=== PATIENT | male | born 1950 | race Caucasian/White ===

== ENCOUNTER 2017-12-12 08:27 | Emergency (ER) | payer BC ==
[2017-12-12] MEDS ORDERED: Albuterol 2.5 MG/3 ML NEB.SOL* (0.083%) INH ONE (10:23)
--- NOTE | 2017-12-12 10:36 | UC ---
Respiratory Complaint HPI - HPI Summary HPI Summary: HERE WITH - ARRIVED YESTERDAY FROM [place]. HAS HAD 5 DAYS OF HARSH COUGH , WHEEZE AND SOB. FEELS HE IS GETTING WORSE. ALBUTEROL AND QVAR INHALERS NOT HELPING. STARTED PREDNISONE 2 DAYS AGO PER HIS PCP IN [place]. DENIES FEVER, NAUSEA, BODY ACHES. STATES HE HAS HAD THIS BEFORE IN THE [place]. - History of Current Complaint Chief Complaint: UCRespiratory Stated Complaint: RESP ISSUE Time Seen by Provider: 12/12/17 10:14 Hx Obtained From: Patient, Family/Coal Handler - Onset/Duration: Gradual Onset, Lasting Days, Still Present Timing: Constant Severity Initially: Moderate Severity Currently: Moderate Pain Intensity: 5 Pain Scale Used: 0-10 Numeric Aggravating Factors: Deep Breaths Alleviating Factors: Nothing Associated Signs And Symptoms: Positive: Dyspnea, Pleuritic Chest Pain, Wheezing , URI. Negative: Fever, Chills - Allergies/Home Medications Allergies/Adverse Reactions: Allergies Allergy/AdvReac Type Severity Reaction Status Date / Time No Known Allergies Allergy Verified 12/12/17 10:30 Home Medications: Home Medications Albuterol HFA INHALER* [Ventolin HFA Inhaler*] 2 puff INH Q4HR 12/12/17 [ History Confirmed 12/12/17] Aspirin 1 tab PO DAILY 12/12/17 [History Confirmed 12/12/17] B12/Iodin/Mag/Zinc/Rachel/Upst224 [Adrenoid Capsule] 1 cap PO DAILY 12/12/17 [ History Confirmed 12/12/17] Beclomethasone 40 MCG MDI(NF) [Qvar 40 MCG MDI(NF)] 2 puff INH DAILY PRN [History Confirmed 12/12/17] Cholecalciferol (Vitamin D3) [Vitamin D3] 5,000 units PO DAILY 12/12/17 [ History Confirmed 12/12/17] Dextroamphetamine (NF) TAB [Dexedrine TAB*] 15 mg PO DAILY 12/12/17 [History Confirmed 12/12/17] Escitalopram (NF) [Lexapro 5 mg (NF)] 1 tab PO DAILY 12/12/17 [History Confirmed 12/12/17] Metformin HCl [Metformin HCl ER] 1,000 mg PO BID 12/12/17 [History Confirmed 07/21] Naltrexone TAB* 3.5 mg PO DAILY 12/12/17 [History Confirmed 12/12/17] [place]-3 Fatty Acids/Fish Oil [Fish Oil 1,000 mg Capsule] 2,000 g PO BID [History Confirmed 12/12/17] amLODIPine TAB* [Norvasc 5 mg TAB*] 10 mg PO DAILY 12/12/17 [History Confirmed 12/12/17] buPROPion HCl [Bupropion Xl] 1 tab PO DAILY 12/12/17 [History Confirmed 12/12/17 ] PMH/Surg Hx/FS Hx/Imm Hx Respiratory History: Asthma - Surgical History Surgical History: Yes Surgery Procedure, Year, and Place: shoulders bilat - Family History Known Family History: Negative: Hypertension - Social History Alcohol Use: Occasionally Substance Use Type: None Smoking Status (MU): Former Smoker Review of Systems Constitutional: Fatigue Respiratory: Shortness Of Breath, Cough Cardiovascular: Negative Gastrointestinal: Negative All Other Systems Reviewed And Are Negative: Yes Physical Exam Triage Information Reviewed: Yes Appearance: Well-Appearing, No Pain Distress, Well-Nourished Vital Signs: Initial Vital Signs Temp 98.6 F 12/12/17 08:40 Pulse 88 12/12/17 08:40 Resp 20 12/12/17 08:40 BP 131/71 12/12/17 08:40 Pulse Ox 98 12/12/17 08:40 Vital Signs Reviewed: Yes Eyes: Positive: Conjunctiva Clear ENT: Positive: Hearing grossly normal, Pharynx normal, TMs normal Neck: Positive: Supple, Nontender, No Lymphadenopathy Respiratory: Positive: Lungs clear, Normal breath sounds, No respiratory distress, No accessory muscle use, Wheezing - END EXP WHEEZE UPPER LOBES THAT CLEARS WITH COUGH Cardiovascular Exam: Normal Abdomen Description: Positive: Soft Musculoskeletal: Positive: No Edema Neurological: Positive: Alert Psychological: Positive: Normal Response To Family, Age Appropriate Behavior Skin: Negative: rashes UC Diagnostic Evaluation - Laboratory O2 Sat by Pulse Oximetry: 98 Re-Evaluation - Re-Evaluation First Eval Re-Evaluation Time: 10:55 - NO SIGNIFICANT IMPROVEMENT AFTER ALBUTEROL NEB Change: Unchanged Second Eval Re-Evaluation Time: 11:25 - NO SIGNIFICANT IMPROVEMENT AFTER IPRATROPIUM NEB Change: Unchanged Respiratory Course/Dx - Course Course Of Treatment: NO IMPROVEMENT AFTER NEB TREATMENT. PT IS ALREADY ON PREDNISONE AND HAS INHALERS AT HOME. WILL COVER FOR POSSIBLE BACTERIAL INFECTION WITH AZITH. PT IS FLYING BACK TO [place] IN 3 DAYS. PT DECLINES CXR TODAY. DISCUSSED POSSIBILITY OF PE. PT DECLINES ED TRANSFER AND STATES HE WILL GO TO ED IF HIS SX WORSEN. - Differential Dx/Diagnosis Provider Diagnoses: ACUTE BRONCHITIS Discharge - Discharge Plan Condition: Stable Disposition: HOME Prescriptions: Azithromycin 500 mg PO DAILY #5 tab Patient Education Materials: Acute Bronchitis (ED) Referrals: No Primary Care Phys,NOPCP [Primary Care Provider] - Additional Instructions: FOLLOW-UP WITH YOUR PCP IN [place] WHEN YOU RETURN IN A FEW DAYS. USE THE COUGH MEDICINE AND YOUR INHALERS PRESCRIBED. GO TO ER WITHOUT FAIL IF YOU DEVELOP WORSENING SHORTNESS OF BREATH, CHEST PAIN, NAUSEA, SWEATS, DIZZINESS OR ANY OTHER CONCERNING SYMPTOMS.
[2017-12-12] MEDS ORDERED: Ipratropium 0.5MG/2.5ML NEB* 0.5 MG/2.5 ML NEB.SOLN INH ONE (11:02)
== END 2017-12-12 11:49 | disposition home or self-care (01) ==
LOC: UCEAST 08:27
DX: J20.9 Acute bronchitis, unspecified (principal); J45.909 Unspecified asthma, uncomplicated; Z79.82 Long term (current) use of aspirin; Z87.891 Personal history of nicotine dependence
CPT/HCPCS: 99203; G0463; J7644